=== PATIENT | male | born 1970 | race Two or more races ===

== ENCOUNTER 2018-12-16 04:02 | Emergency (ER) | payer SELFPAY ==
[~2018-12-16] VITALS: Ht 170.2 cm; Wt 95.3 kg
[2018-12-16 04:10] VITALS: BP 143/103
--- NOTE | 2018-12-16 04:12 | NUR ---
ED Nurse Note: Patient walked in to ER c/o toothache. Per patient he removed his both wisdom teeth month ago. Since today 0000 the pain is untolerable. AAO x4, VSS at this time, skn is dry, warm to touch.
[2018-12-16] MEDS ORDERED: AMOXICILLIN500 MG ORAL (04:21)
[2018-12-16] MEDS ORDERED: IBUPROFEN600 MG ORAL (04:21)
[2018-12-16] MEDS ORDERED: HYDROCODON-ACE1 EA15 ORAL (04:21)
--- NOTE | 2018-12-16 04:21 | Emergency Room Report ---
History of Present Illness General Chief Complaint: Toothache Source: Patient Present Illness HPI This is a 48-year-old male with no significant past history. Presents with chief complaint of dental pain. About a month and half ago he had both was some teeth on the right side removed. Since then she been having intermittent pain but worse the last couple days. Pain is throbbing in nature. Waiting to his head. Unable to sleep. No swelling. Pain is 9 out of 10. Over-the- counter not helping. Has not follow-up with the dentist. Denies any other complaint. No fever chills but no nausea no vomiting. Allergies: Coded Allergies: No Known Allergies (Verified Allergy, Unknown, 04/07/07) Patient History Past Medical History: see triage record, old chart reviewed Past Surgical History: none Pertinent Family History: none Social History: Reports: drug use Immunizations: other Reviewed Nursing Documentation: PMH: Agreed; PSxH: Agreed Nursing Documentation-PMH Past Medical History: No Stated History Review of Systems Eye: Denies: eye pain, blurred vision ENT: Denies: ear pain, nose congestion, throat swelling Respiratory: Denies: cough, shortness of breath Cardiovascular: Denies: chest pain, palpitations Gastrointestinal: Denies: abdominal pain, diarrhea, nausea, vomiting Musculoskeletal: Denies: back pain, joint pain Skin: Denies: rash Neurological: Denies: headache, numbness Endocrine: Denies: increased thirst, increased urine Hematologic/Lymphatic: Denies: easy bruising All Other Systems: negative except mentioned in HPI Physical Exam Vital Signs Date Time Temp Pulse Resp B/P (MAP) Pulse Ox O2 Delivery O2 Flow Rate FiO2 12/16/18 04:05 98.4 70 18 143/103 (116) 96 Room Air vitals unremarkable Sp02 EP Interpretation: reviewed, normal General Appearance: well appearing, no apparent distress, alert Head: normocephalic, atraumatic Eyes: bilateral eye PERRL, bilateral eye EOMI ENT: hearing grossly normal, normal pharynx, other - No evidence of any abscess. No trismus. Neck: full range of motion, supple, no meningismus Respiratory: chest non-tender, lungs clear, normal breath sounds Cardiovascular #1: regular rate, rhythm, no murmur Gastrointestinal: normal bowel sounds, non tender, no mass, no organomegaly, no bruit, non-distended Musculoskeletal: back normal, gait/station normal, normal range of motion Psychiatric: mood/affect normal Skin: warm/dry Medical Decision Making Diagnostic Impression: Primary Impression: Toothache ER Course No evidence of any abscess. No trismus. Will need to follow-up with dentist SARAH. Last Vital Signs Date Time Temp Pulse Resp B/P (MAP) Pulse Ox O2 Delivery O2 Flow Rate FiO2 12/16/18 04:10 98.4 18 143/103 96 Room Air 12/16/18 04:05 70 Status: improved Disposition: HOME, SELF-CARE Condition: Stable Scripts Ibuprofen* (MOTRIN*) 600 Mg Tablet 600 MG ORAL THREE TIMES A DAY, #30 TAB 0 Refills Prov: Gilbert Coleman MD 12/16/18 Hydrocodone/Acetaminophen 5-325* (HYDROCODONE/ACETAMINOPHEN 5-325*) 1 Each Tablet 1 TAB ORAL Q6H PRN for For Pain, #15 TAB 0 Refills Prov: Gilbert Coleman MD 12/16/18 Amoxicillin* (AMOXIL*) 500 Mg Capsule 500 MG ORAL THREE TIMES A DAY, #21 CAP Prov: Gilbert Coleman MD 12/16/18 Referrals: NOT CHOSEN [facility]/,REFERRING (PCP) Patient Instructions: Dental Pain Additional Instructions: Follow-up with dentist SARAH. Return if symptom worsen. Gilbert Coleman MD Dec 16, 2018 04:21
[2018-12-16 04:26] VITALS: BP 143/103
--- NOTE | 2018-12-16 04:27 | NUR ---
ED Nurse Note: Pt cleared by health care Provider for discharge. DC instructions/prescription was given and explained to pt and verbalized understanding of teachings. All medical deviecs such as ID band removed. Pt is AAO x4, ambulatory and left with all personal belongings.
[2018-12-16] MEDS ORDERED: HYDROcodone/Acetamin 5/325 tab ORAL ONE (04:30)
== END 2018-12-16 04:27 | disposition home or self-care (01) ==
LOC: EMR 04:17
DX: K08.89 Other specified disorders of teeth and supporting structures (principal)
CPT/HCPCS: 99282